=== PATIENT | female | born 1960 | race African-American/Black ===

== ENCOUNTER 2018-03-18 07:30 | Emergency (ER) | payer OTHER ==
[~2018-03-18] VITALS: Ht 162.6 cm; Wt 134.0 kg
[~2018-03-18 07:30] MED LIST: AMLO10TA4; ASPI-518; GLIMEPRIDE; METF1000; [UNRECOGNIZED DRUG - OTHER]
[2018-03-18] MEDS ORDERED: KETOROLAC 60MG/2ML VIAL IM STA (09:43)
[2018-03-18 10:25] LABS: CLARITY URINE CLEAR (CLEAR); COLOR URINE YELLOW (YELLOW); KETONES URINE NEGATIVE (NEGATIVE); LEUKOCYTE ESTERASE URINE NEGATIVE (NEGATIVE); NITRITE URINE NEGATIVE (NEGATIVE); OCCULT BLOOD URINE NEGATIVE (NEGATIVE); PROTEIN URINE NEGATIVE (NEGATIVE); SPECIFIC GRAVITY URINE 1.013 (1.005-1.030); UROBILINOGEN URINE 0.2 E.U./dL (0.2-1.0)
[2018-03-18 11:26] VITALS: BP 135/62
== END 2018-03-18 11:28 | disposition home or self-care (01) ==
LOC: ER 08:48
DX: M54.5 Low back pain (principal); M25.511 Pain in right shoulder; E11.9 Type 2 diabetes mellitus without complications; Z79.84 Long term (current) use of oral hypoglycemic drugs; Z79.899 Other long term (current) drug therapy; Z96.649 Presence of unspecified artificial hip joint
CPT/HCPCS: 72100; 81003; 96372; 99285; J1885; Z7610

== ENCOUNTER 2019-01-17 14:42 | Emergency (ER) | payer OTHER ==
[~2019-01-17] VITALS: Ht 165.1 cm; Wt 140.0 kg
[2019-01-17] MEDS ORDERED: SODIUM CHLORIDE 0.9% 1,000 ML IV ONE (16:15)
[2019-01-17 16:25] LABS: BASOPHILS % 0.6 % (0.0-2.0); EOSINOPHILS % 1.8 % (0.0-5.0); HEMATOCRIT. 36.4 % (36.0-48.0); HEMOGLOBIN. 11.7 g/dL (12.0-16.0); LYMPHOCYTES % 12.8 % (20.0-50.0); MEAN CORPUSCULAR HEMOGLOBIN 23.5 pg (28.0-32.0); MEAN CORPUSCULAR VOLUME 73.1 fL (81.0-99.0); MEAN PLATELET VOLUME 7.2 fl (7.4-10.4); MONOCYTES % 8.3 % (2.0-8.0); NEUTROPHILS % 76.5 % (40.0-76.0); PLATELET 417 x1000/uL (130-400); RED BLOOD CELL COUNT 4.98 mill/uL (4.2-5.4); RED CELL DISTRIBUTION WIDTH 18.2 % (11.6-14.6)
[2019-01-17 16:29] LABS: CLARITY URINE CLEAR (CLEAR); COLOR URINE YELLOW (YELLOW); KETONES URINE NEGATIVE (NEGATIVE); LEUKOCYTE ESTERASE URINE TRACE (NEGATIVE); NITRITE URINE NEGATIVE (NEGATIVE); OCCULT BLOOD URINE NEGATIVE (NEGATIVE); PROTEIN URINE NEGATIVE (NEGATIVE); SPECIFIC GRAVITY URINE 1.015 (1.005-1.030); UROBILINOGEN URINE 0.2 E.U./dL (0.2-1.0)
[2019-01-17 16:30] LABS: CHLORIDE 108 mEq/L (98-107)
[2019-01-17] MEDS ORDERED: KETOROLAC 30MG/ML VIAL IV ONE (16:45)
[2019-01-17] MEDS ORDERED: IOHEXOL-300 100 ML BOTTLE ONE (18:51)
[2019-01-17 20:45] VITALS: BP 147/80
== END 2019-01-17 20:50 | disposition home or self-care (01) ==
LOC: ER 14:42
DX: M16.12 Unilateral primary osteoarthritis, left hip (principal); R10.9 Unspecified abdominal pain; E11.9 Type 2 diabetes mellitus without complications; I10 Essential (primary) hypertension; Z96.649 Presence of unspecified artificial hip joint; Z79.82 Long term (current) use of aspirin
CPT/HCPCS: 36415; 71045; 71260; 74177; 80053; 81003; 85025; 93005; 96374; 99284; J1885; J7030; Q9967; Z7610

== ENCOUNTER 2019-03-05 13:29 | Emergency (ER) | payer OTHER ==
[~2019-03-05] VITALS: Ht 165.1 cm; Wt 139.0 kg
[2019-03-05] MEDS ORDERED: KETOROLAC 30MG/ML VIAL IM ONE (14:45)
[2019-03-05 15:45] VITALS: BP 172/85
== END 2019-03-05 16:04 | disposition home or self-care (01) ==
LOC: ER 14:37
DX: M25.562 Pain in left knee (principal); M25.511 Pain in right shoulder; R51 Headache; E11.9 Type 2 diabetes mellitus without complications; I10 Essential (primary) hypertension; Z96.649 Presence of unspecified artificial hip joint; Z79.899 Other long term (current) drug therapy; Z98.890 Other specified postprocedural states; V49.88XA Car occupant (driver) (passenger) injured in other specified transport accidents, initial encounter; Y93.89 Activity, other specified; Y92.89 Other specified places as the place of occurrence of the external cause; Y99.8 Other external cause status
CPT/HCPCS: 73030; 73562; 96372; 99283; J1885